=== PATIENT | male | born 1970 | race Hispanic/Latino ===

== ENCOUNTER 2021-05-29 09:11 | Day surgery (SDC) | payer OTHER ==
[2021-05-27 10:06] LABS: BASOPHILS % (AUTO) 0.9 % (0.0-5.0); HEMATOCRIT 45.9 % (42-54); LYMPHOCYTES % (AUTO) 41.6 % (21.0-51.0); MEAN CORPUSCULAR HGB CONC 33.3 g/dL (32.0-36.0); MONOCYTES % (AUTO) 6.8 % (3.0-13.0); NEUTROPHILS % (AUTO) 46.2 % (40.0-77.0); PLATELET COUNT (AUTO) 290 K/uL (130-400); RED CELL DISTRIBUTION WIDTH 13.5 % (11.0-15.5)
[2021-05-28 09:53] VITALS: BP 146/83
[~2021-05-29] VITALS: Ht 170.2 cm; Wt 110.4 kg
[2021-05-29] VITALS (19 sets, daily range): BP systolic 126–152; BP diastolic 74–100
[~2021-05-29 09:11] MED LIST: ACET-2743 PO; BRIM5DRO4 OP; CELE100C PO; DULO20CA18 PO
[2021-05-29] MEDS ORDERED: LACTATED RINGERS 1000ML 1,000 ML IV ONE (09:55)
[2021-05-29] MEDS ORDERED: CEFAZOLIN SODIUM 1 GM VIAL ONE (10:42)
[2021-05-29] MEDS ORDERED: LIDOCAINE PF 100MG/5ML (2%) SYRINGE 5ML ONE (14:40)
[2021-05-29] MEDS ORDERED: MIDAZOLAM HCL 1 MG/ML 2ML VIAL ONE ×2 (14:40→14:46)
[2021-05-29] MEDS ORDERED: PROPOFOL 10 MG/ML 20ML VIAL IV ONE (14:40)
[2021-05-29] MEDS ORDERED: DEXAMETHASONE SOD PHOSPHATE 10MG/ML 1ML VIAL ONE (14:40)
[2021-05-29] MEDS ORDERED: ONDANSETRON 4MG INJ ONE (14:40)
[2021-05-29] MEDS ORDERED: FENTANYL CITRATE PF 50 MCG/1 ML 2ML VIAL ONE ×2 (14:41→15:27)
[2021-05-29] MEDS ORDERED: KETOROLAC 30MG VIAL (30MG/ML) ONE (15:26)
[2021-05-29] MEDS ORDERED: CEPH500B PO (15:53)
[2021-05-29] MEDS ORDERED: ACET1TAB25 PO (15:53)
[2021-05-29] MEDS ORDERED: TRAMADOL HCL 50 MG TABLET ONE (16:58)
[2021-05-29] MEDS ORDERED: TRAMADOL HCL 50 MG TABLET PO ONE (18:00)
== END 2021-05-29 18:00 | disposition home or self-care (01) ==
LOC: DAH 09:11
PROVIDERS: ATTEND Orthopaedic Surgery
DX: S83.242A Other tear of medial meniscus, current injury, left knee, initial encounter (principal); Z20.822 Contact with and (suspected) exposure to COVID-19; M22.42 Chondromalacia patellae, left knee; J44.9 Chronic obstructive pulmonary disease, unspecified; M19.90 Unspecified osteoarthritis, unspecified site; M79.7 Fibromyalgia; Z85.72 Personal history of non-Hodgkin lymphomas; Z80.9 Family history of malignant neoplasm, unspecified; Z82.49 Family history of ischemic heart disease and other diseases of the circulatory system; Z83.3 Family history of diabetes mellitus
CPT/HCPCS: 29881; 36415; 80048; 85025; 87635; A4215; A4221; A4222; A4223; A4649; A4663; A6223; C9803; J0690; J1100; J1885; J2001; J2250 ×2; J2405; J2704; J3010 ×2; J7120 ×2